=== PATIENT | female | born 1960 | race Caucasian/White ===

== ENCOUNTER 2018-10-10 07:30 | Day surgery (SDC) | payer OTHER ==
[~2018-10-10 07:30] MED LIST: ACID CONTROLLER PO; ALBU90OI INH; ALLER-TEC D 5-1 EACH PO; ASPI325EC PO; EZET10 PO; NAPR220 PO; OMEGA-3 + VITA1 EAC2; OXYC5 PO; PROM25 PO
== END 2018-10-10 23:09 | disposition home or self-care (01) ==
LOC: MOI MAM 07:30
DX: C50.912 Malignant neoplasm of unspecified site of left female breast (principal); Z17.0 Estrogen receptor positive status [ER+]
CPT/HCPCS: 19083; 77065; 88305; 88360; A4648; G0279

== ENCOUNTER 2018-11-24 07:53 | Day surgery (SDC) | payer OTHER ==
[~2018-11-24] VITALS: Ht 157.5 cm; Wt 87.2 kg
--- NOTE | 2018-11-24 13:21 | NUR ---
PT REPORT FROM RAÚL RN AT 1305. PT HAD BEEN UP TO THE BR WITHOUT DIFFICULTY. PT DRESSING TO R CHEST WALL REMAINS CDI BOTH INCISION SITES. PT UP TO DRESS WITHOUT DIFFICULTY AND DID NOT WANT ANY PAIN MEDS BEFORE BEING DISCHARGED. Discharge instructions reviewed with patient. Patient verbalizes understanding. Copy given to patient to take home. Patient up to Ambulate independently. Gait steady. Patient States Post-Procedure ride home has been arranged. Discharged via wheelchair to private car for ride home.
--- NOTE | 2018-11-24 13:23 | NUR ---
ALL BELONIGINGS RETURNED TO PATIENT.
--- NOTE | 2018-11-25 08:40 | NUR ---
11/25/18 0840 Rosa Dean VERIFICATIONS: EDIT CHART.
== END 2018-11-24 22:52 | disposition home or self-care (01) ==
LOC: ORSCMMR 07:53 → ORD 09:30 → ORSCMMR 22:52
PROVIDERS: Surgery
PROC: 05HM33Z Insertion of Infusion Device into Right Internal Jugular Vein, Percutaneous Approach (ICD-10-PCS; principal; 2018-11-24 09:30)
PROC: B5131ZA Fluoroscopy of Right Jugular Veins using Low Osmolar Contrast, Guidance (ICD-10-PCS; principal; 2018-11-24 09:30)
DX: C50.512 Malignant neoplasm of lower-outer quadrant of left female breast (principal); M35.00 Sjogren syndrome, unspecified; E66.9 Obesity, unspecified; Z68.35 Body mass index [BMI] 35.0-35.9, adult; Z79.899 Other long term (current) drug therapy
CPT/HCPCS: 77001; C1788; J0690; J1100; J1642; J2250; J2405; J3010; J7120

== ENCOUNTER 2018-11-28 08:00 | Day surgery (SDC) | payer OTHER | END 2018-11-28 12:00 | disposition home or self-care (01) | LOC: MOI US 08:00 → MOI MAM 08:00 | DX: C50.512 Malignant neoplasm of lower-outer quadrant of left female breast (principal); C50.919 Malignant neoplasm of unspecified site of unspecified female breast; C77.3 Secondary and unspecified malignant neoplasm of axilla and upper limb lymph nodes | CPT/HCPCS: 19285; 19286; 77065; G0279 ==

== ENCOUNTER → 2023-07-29 | Outpatient (CLI) | payer OTHER ==
[~2023-07-29] MED LIST changes: +CALCIUM 500 +1 EAC4 PO; +EXEM25 PO; +FAMO10 PO; +LIDOCAINE-PRIL1 EACH TOP; +LOSA25 PO; +Vitamin B-Comp1 EACH PO; +Vitamin D2000 UNIT PO; +Zantac150 MG PO
== END | disposition home or self-care (01) ==
LOC: LAB 15:00 → LAB SHORT 15:00
DX: C44.629 Squamous cell carcinoma of skin of left upper limb, including shoulder (principal)
CPT/HCPCS: 88305

== ENCOUNTER 2025-04-28 11:24 | Day surgery (SDC) | payer MEDICARE, BC ==
[2025-04-07 09:17] VITALS: BP 167/91
[~2025-04-28] VITALS: Ht 157.5 cm; Wt 84.9 kg
[2025-04-28] VITALS (12 sets, daily range): BP systolic 134–159; BP diastolic 74–86
[~2025-04-28 11:24] MED LIST changes: +CeFAZolin Sodium 2,000 MG in NS 100 ML IV SCH; +Chlorhexidine Mouth Care 15 ML UDC MT SCH; +NAPR500 PO; +Ropivacaine 0.5% HCl/Pf 123.125 MG,EPINEPHrine HCL 0.25 MG,Ketorolac Tromethamine 15 MG... INFIL SCH; +THERA-D2000 UNIT PO; +Tranexamic Acid 100 ML IV SCH; -Vitamin D2000 UNIT PO
[2025-04-28] MEDS ORDERED: MUPIROCIN1 G2 TOP (11:55)
[2025-04-28] MEDS ORDERED: CeFAZolin Sodium 2,000 MG VIAL ONE (12:21)
[2025-04-28] MEDS ORDERED: FentaNYL Citrate 50 MCG/ML 2 ML Injection ONE (12:35)
--- NOTE | 2025-04-28 12:59 | NUR ---
KNEE HIGH GANESH HOSE WITH CALF PAS APPLIED TO RLE.
[2025-04-28] MEDS ORDERED: HYDROmorphone HCl/Pf 1MG SYR IV PRN ×3 (13:05→13:40)
[2025-04-28] MEDS ORDERED: Magnesium Hydroxide Conc 10 ML UDC PO PRN (13:10)
[2025-04-28] MEDS ORDERED: Metoclopramide HCl 5MG / ML 2ML Vial IV PRN ×2 (13:15→13:40)
[2025-04-28] MEDS ORDERED: Ondansetron HCl 2 MG / ML 2ML Vial IV PRN ×2 (13:15→13:35)
[2025-04-28] MEDS ORDERED: Labetalol HCL 5 MG/ML 4ML Injection (Single Dose) IV PRN (13:40)
[2025-04-28] MEDS ORDERED: FentaNYL Citrate 50 MCG/ML 2 ML Injection IV PRN (13:40)
[2025-04-28] MEDS ORDERED: HydrALAZINE HCl 20 MG / ML 1ML Vial IV PRN (13:40)
[2025-04-28] MEDS ORDERED: Albuterol 2.5 MG/3 ML VIAL INH PRN (13:45)
[2025-04-28] MEDS ORDERED: Ketorolac Tromethamine 15mg Vial IV PRN (13:50)
--- NOTE | 2025-04-28 17:39 | NUR ---
Pt to room 222 from pacu. postop vs started and stable. pt alert to verbal. able to wiggle toes and full sensation distally. polar pack/teds/scds on. water and snacks provided. Will continue to monitor.
[2025-04-28] MEDS ORDERED: Ketorolac Tromethamine 15mg Vial IV SCH (18:00)
--- NOTE | 2025-04-28 18:15 | NUR ---
shift summary pt resting. post op vs in progress. Pt late case in the afternoon. PT is home for the day. Will readress therapy in the am.
[2025-04-28] MEDS ORDERED: NS 250 ML IV PRN (19:20)
[2025-04-28] MEDS ORDERED: CeFAZolin Sodium 2,000 MG in NS 100 ML IV SCH (22:00)
[2025-04-29 00:34] VITALS: BP 117/65
[2025-04-29 05:30] VITALS: BP 113/64
[2025-04-29 05:59] LABS: BASOPHILS ABSOLUTE AUTO 0.03 K/mm3 (0.00-0.23); BASOPHILS PERCENT AUTO 0 % (0-2); EOSINOPHILS ABSOLUTE AUTO 0.24 K/mm3 (0.00-0.68); EOSINOPHILS PERCENT AUTO 3 % (0-6); Hematocrit 30.2 % (33.0-51.0); Hemoglobin 9.9 g/dL (11.5-16.0); IMMATURE GRAN ABSOLUTE AUTO 0.02 K/mm3 (0.00-0.10); IMMATURE GRAN PERCENT AUTO 0 % (0-1); LYMPHOCYTES ABSOLUTE AUTO 1.50 K/mm3 (0.84-5.20); LYMPHOCYTES PERCENT AUTO 17 % (21-46); MONOCYTES ABSOLUTE AUTO 0.92 K/mm3 (0.16-1.47); MONOCYTES PERCENT AUTO 10 % (4-13); Mean Corpuscular HGB Conc 32.8 g/dL (31.5-36.5); Mean Corpuscular Volume 92 fL (80-100); NEUTROPHILS ABSOLUTE AUTO 6.35 K/mm3 (1.96-9.15); NEUTROPHILS PERCENT AUTO 70 % (41-73); NRBC ABSOLUTE 0.00 K/mm3 (0.00-0.02); NRBC Auto 0.0 /100 WBC (0.0-0.2); Platelet Count 235 K/mm3 (150-400); RDW Coefficient Variation 13.0 % (11.7-14.2); RDW Standard Deviation 43.2 fL (35.1-46.3)
[2025-04-29 06:29] LABS: Anion Gap 8.0 mmol/L (3-11); Blood Urea Nitrogen 7.0 mg/dL (8-24); CO2, Blood 25.0 mmol/L (21-32); Calcium, Blood 8.1 mg/dL (8.5-10.1); Chloride, Blood 106.0 mmol/L (98-108); Creatinine, Blood 0.66 mg/dL (0.40-1.00); Glucose, Blood 107.0 mg/dL (70-99); Magnesium, Blood 2.0 mg/dL (1.6-2.4); Potassium, Blood 3.7 mmol/L (3.5-5.5); Sodium, Blood 135.0 mmol/L (136-145)
[2025-04-29 07:12] VITALS: BP 125/78
--- NOTE | 2025-04-29 07:17 | NUR ---
SHIFT SUMMARY NOC. PT POD 1 FOR LEFT TOTAL KNEE. PT'S DRESSING C/D/I ASIDE FROM LIGHT SEROSANG SHADOWING BELOW AQUACEL DRESSING. PT MEDICATED FOR PAIN PER EMAR WITH REPORTED RELIEF OF SX. PT VOIDING URINE, AMBULATES WELL WITH GB, AND WALKER. MAKES NEEDS KNOWN, CALL LIGHT IN REACH.
[2025-04-29] MEDS ORDERED: Cholecalciferol 1000 Unit Tablet (=25MCG) PO SCH (09:00)
[2025-04-29] MEDS ORDERED: ACET500 PO (09:18)
[2025-04-29] MEDS ORDERED: OXYC5 PO (09:18)
[2025-04-29] MEDS ORDERED: XARELTO20 MG PO (09:19)
[2025-04-29] MEDS ORDERED: ONDA4ODT MM (09:19)
--- NOTE | 2025-04-29 09:32 | NUR ---
dc instruct reviewed. stated understanding. dc'd to pov via wc
== END 2025-04-29 10:33 | disposition home or self-care (01) ==
LOC: ORSCMMR 11:24 → ORD 14:15 → ORSCMMR 14:30 → SURS 17:20 → ORSCMMR 04-29 10:33
PROVIDERS: Orthopaedic Surgery
PROC: 0SRD0JA Replacement of Left Knee Joint with Synthetic Substitute, Uncemented, Open Approach (ICD-10-PCS; principal; 2025-04-28 14:30)
DX: M17.12 Unilateral primary osteoarthritis, left knee (principal); I10 Essential (primary) hypertension; K21.9 Gastro-esophageal reflux disease without esophagitis; E66.9 Obesity, unspecified; Z68.34 Body mass index [BMI] 34.0-34.9, adult; Z96.651 Presence of right artificial knee joint; Z79.899 Other long term (current) drug therapy; Z85.3 Personal history of malignant neoplasm of breast; Z85.828 Personal history of other malignant neoplasm of skin; M35.00 Sjogren syndrome, unspecified
CPT/HCPCS: 36415; 73560-LT; 80048; 83735; 85025; 97110; 97116; 97161; 97530; A9270; C1713; C1776; J0166; J0690; J0735; J1885; J2704; J2795; J3010; J3373; J7050; J7120